=== PATIENT | male | born 1995 | race Caucasian/White ===

== ENCOUNTER 2017-01-03 19:06 | Emergency (ER) | payer OTHER ==
[~2017-01-03] VITALS: Ht 190.5 cm; Wt 145.1 kg
[~2017-01-03 19:06] MED LIST: AUGMENTIN 875 M1 TAB PO; CLARITIN-D 12 H1 TAB PO; CLARITIN10 MG PO; FLONASE ALLERG9.9 ML NAS; MEDROL DOSEPAK4 MG PO; PRILOSEC20 MG PO; PROVENTIL0.09 MG/AC IH; VICO10300 PO
[2017-01-03 19:20] VITALS: BP 154/81
[2017-01-03] MEDS ORDERED: CLARITIN10 MG PO (19:30)
[2017-01-03] MEDS ORDERED: FLONASE ALLERG9.9 ML NAS (19:30)
[2017-01-03] MEDS ORDERED: PREDNISONE10 MG PO (19:30)
[2017-01-03 19:45] LABS: BILIRUBIN NEGATIVE (NEGATIVE); BLOOD NEGATIVE (NEGATIVE); CLARITY CLEAR (CLEAR); COLOR YELLOW (YELLOW); GLUCOSE NEGATIVE (NEGATIVE); KETONE NEGATIVE (NEGATIVE); LEUKO ESTERASE NEGATIVE (NEGATIVE); NITRITE NEGATIVE (NEGATIVE); PROTEIN NEGATIVE (NEGATIVE); SPECIFIC GRAVITY 1.015 (1.005-1.030); UROBILINOGEN 0.2 E.U./dl (0.2-1.0)
[2017-01-03 20:02] LABS: RBC 0-2 rbc/hpf (0-2); URINE REFLEX COMMENT NO (NO); WBC 0-2 wbc/hpf (0-5)
== END 2017-01-03 19:43 | disposition home or self-care (01) ==
LOC: ED 19:06
PROVIDERS: Nurse Practitioner Family
DX: J30.2 Other seasonal allergic rhinitis (principal); R30.0 Dysuria; R03.0 Elevated blood-pressure reading, without diagnosis of hypertension; Z79.899 Other long term (current) drug therapy

== ENCOUNTER 2019-04-13 00:56 | Emergency (ER) | payer OTHER ==
[~2019-04-13] VITALS: Ht 187.9 cm; Wt 158.8 kg
[~2019-04-13 00:56] MED LIST changes: +PREDNISONE10 MG PO
[2019-04-13 00:59] VITALS: BP 144/72
[2019-04-13] MEDS ORDERED: CYCLOBENZAPRINE5 M3 PO (02:19)
== END 2019-04-13 03:05 | disposition home or self-care (01) ==
LOC: ED 00:56
DX: S16.1XXA Strain of muscle, fascia and tendon at neck level, initial encounter (principal); S80.01XA Contusion of right knee, initial encounter; Z79.899 Other long term (current) drug therapy; V49.59XA Passenger injured in collision with other motor vehicles in traffic accident, initial encounter; Y93.89 Activity, other specified; Y92.413 State road as the place of occurrence of the external cause; Y99.9 Unspecified external cause status

== ENCOUNTER 2021-08-01 00:55 | Emergency (ER) | payer OTHER ==
[~2021-08-01 00:55] MED LIST changes: +CYCLOBENZAPRINE5 M3 PO
== END 2021-08-01 01:40 | disposition left against medical advice (07) ==
LOC: ED 00:55
DX: K08.89 Other specified disorders of teeth and supporting structures (principal); Z53.21 Procedure and treatment not carried out due to patient leaving prior to being seen by health care provider

== ENCOUNTER 2021-09-13 22:33 | Emergency (ER) | payer OTHER ==
[~2021-09-13] VITALS: Ht 187.9 cm; Wt 139.3 kg
[2021-09-13 22:42] VITALS: BP 131/79
[2021-09-13 23:29] LABS: BILIRUBIN Negative (Negative); BLOOD Negative (Negative); CLARITY Clear (Clear); COLOR Yellow (Yellow); GLUCOSE Negative (Negative); KETONE Negative (Negative); LEUKO ESTERASE Negative (Negative); NITRITE Negative (Negative); PH 5.5 (4.5-8.0); SPECIFIC GRAVITY 1.015 (1.001-1.030); UROBILINOGEN 0.2 E.U./dl (0.0-1.0)
[2021-09-14 00:16] LABS: BACTERIA TRACE; RBC 0-2 rbc/hpf (0-2)
== END 2021-09-14 01:06 | disposition home or self-care (01) ==
LOC: ED 22:33
PROVIDERS: Physician Assistant
DX: Z11.3 Encounter for screening for infections with a predominantly sexual mode of transmission (principal); G89.29 Other chronic pain; M25.561 Pain in right knee; M25.562 Pain in left knee

== ENCOUNTER 2022-06-17 05:13 | Emergency (ER) | payer OTHER ==
[~2022-06-17] VITALS: Ht 182.8 cm; Wt 132.9 kg
[2022-06-17 05:17] VITALS: BP 137/70
[2022-06-17 06:01] LABS: BILIRUBIN Negative (Negative); BLOOD Negative (Negative); CLARITY Clear (Clear); COLOR Yellow (Yellow); GLUCOSE Negative (Negative); KETONE 1+ (Negative); LEUKO ESTERASE Negative (Negative); NITRITE Negative (Negative); PH 5.5 (4.5-8.0); SPECIFIC GRAVITY >= 1.030 (1.001-1.030)
[2022-06-17 06:16] LABS: EPITHELIAL CELLS 0-2
[2022-06-17 06:17] LABS: CALCIUM OXALATE CRYSTALS Trace; MUCOUS TRACE
== END 2022-06-17 06:46 | disposition home or self-care (01) ==
LOC: ED 05:13
PROVIDERS: Internal Medicine
DX: A64 Unspecified sexually transmitted disease (principal)

== ENCOUNTER 2024-06-07 17:10 | Emergency (ER) | payer OTHER ==
[2024-06-07] MEDS ORDERED: VIBRAMYCIN100 MG PO (17:28)
[2024-06-07 17:30] VITALS: BP 130/75
[2024-06-07] MEDS ORDERED: Water, Sterile 10 ML VIAL ONE (17:45)
[2024-06-07 17:57] LABS: BILIRUBIN Negative (Negative); BLOOD Negative (Negative); CLARITY Turbid (Clear); COLOR Yellow (Yellow); GLUCOSE Negative (Negative); KETONE Negative (Negative); LEUKO ESTERASE Negative (Negative); NITRITE Negative (Negative); PH 7.5 (4.5-8.0)
[2024-06-07 18:18] LABS: EPITHELIAL CELLS 0-2; WBC 0-2 wbc/hpf (0-5)
== END 2024-06-07 18:10 | disposition home or self-care (01) ==
LOC: ED 17:10
PROVIDERS: Physician Assistant Medical
DX: L73.9 Follicular disorder, unspecified (principal); Z98.890 Other specified postprocedural states

== ENCOUNTER 2024-06-07 17:48 | Emergency (ER) | payer BC ==
[~2024-06-07 17:48] MED LIST changes: +VIBRAMYCIN100 MG PO
== END 2024-06-07 18:08 | disposition left against medical advice (07) ==
LOC: ED 17:48
DX: Z00.00 Encounter for general adult medical examination without abnormal findings (principal); Z53.21 Procedure and treatment not carried out due to patient leaving prior to being seen by health care provider